=== PATIENT | male | born 1995 | race Caucasian/White ===

== ENCOUNTER → 2022-05-13 12:19 | Outpatient (ROUT) | payer OTHER, MEDICAID, SELFPAY ==
[2022-05-13 14:32] LABS: Urine N gonorrhoeae NOT DETECTED
[2022-05-13 14:33] LABS: Urine Chlamydia NOT DETECTED
== END ==
PROVIDERS: Family Provider Pediatrics; PCP Pediatrics; Visit Provider Nurse Practitioner Family
DX: Z11.3 Encounter for screening for infections with a predominantly sexual mode of transmission (principal)
CPT/HCPCS: 87491; 87591